=== PATIENT | male | born 1965 | race Caucasian/White ===

== ENCOUNTER 2019-04-24 12:06 | Day surgery (SDC) | payer OTHER ==
[~2019-04-24] VITALS: Ht 170.2 cm; Wt 69.5 kg
[2019-04-24 12:25] LABS: HEMATOCRIT 51.3 % (42.0-54.0); HEMOGLOBIN 18.2 g/dL (13.5-17.5); MCH 33.7 pg (26.0-34.0); MCHC 35.5 g/dL (31.0-37.0); MEAN PLATELET VOLUME 10.2 fL (7.4-10.4); RBC 5.4 10x6/uL (4.20-6.10); RDW 13.1 % (11.5-14.5); WBC 10.1 10x3/uL (4.8-10.8)
[2019-04-24 12:43] VITALS: BP 118/52; Ht 170.2 cm; Wt 69.5 kg
[2019-04-24 12:56] LABS: ALBUMIN 4.7 g/dL (3.4-5.0); ANION GAP 13.2 mmol/L (8-16); BILIRUBIN - TOTAL 0.57 mg/dL (0.2-1.3); CALCIUM 9.7 mg/dL (8.5-10.1); CARBON DIOXIDE 30.4 mmol/L (21.0-32.0); CREATININE - SERUM 1.2 mg/dL (0.6-1.3); POTASSIUM - SERUM 4.6 mmol/L (3.5-5.1); PROTEIN - SERUM 8.8 g/dL (6.4-8.2)
[2019-04-24 13:02] LABS: APTT 31.9 SECONDS (22.8-39.4); INR 0.95 (0.85-1.17); PROTIME 12.7 SECONDS (11.6-15.0)
--- NOTE | 2019-04-24 15:44 | NUR ---
1540 IV DC'D. CATHETER TIP INTACT. NO BLEEDING OR SWELLING AT SITE. BANDAID APPLIED.
--- NOTE | 2019-04-26 17:10 | OP ---
PATIENT NAME: DORINA QUEZADA MEDICAL RECORD: [id number] :65 LOCATION:D[facility] ADMISSION DATE: SURGEON: KELVIN RAPP DO DATE OF OPERATION: 04/24/2019 PROCEDURE: Colonoscopy with polypectomy and biopsies. INDICATIONS FOR PROCEDURE: Generalized abdominal tenderness, diarrhea, nausea, and vomiting. SCOPE: MST video pediatric colonoscope. MEDICATIONS: Propofol 250 mg IV per anesthesia. WITHDRAWAL TIME: 12 minutes. ESTIMATED BLOOD LOSS: Minimal. COMPLICATIONS: None. FINDINGS: Informed consent was given. The patient was made comfortable with the above medication. After reaching an adequate level of sedation by slow IV push, the patient was placed on his left side. A digital rectal examination was performed and was normal. The endoscope was then advanced under direct visualization through the rectum to the cecum, confirmed by the presence of the appendiceal orifice and ileocecal valve. The endoscope was slowly withdrawn. Mucosa was carefully examined. The prep quality was good. There was a benign appearing sessile polyp located in the cecum. It measured approximately 3 mm in diameter. It was removed using hot forceps. In the descending colon, there was a semi-pedunculated sessile polyp, which measured approximately 7-8 mm in diameter. It was removed using hot snare. The remaining defect was closed using an endoclip to prevent complications post discharge. During the procedure, stool was collected to send off for further studies and random biopsies were taken to rule out microscopic colitis. Retroflexion was performed in the rectum with visualization of grade I internal hemorrhoids without bleeding. The endoscope was withdrawn from the patient. The patient tolerated the procedure well and there were no complications. IMPRESSION: 1. Two polyps as described above, removed using a combination of hot forceps and hot snare. 2. Grade I internal hemorrhoids without bleeding. 3. Otherwise, normal colonoscopy. Stool studies will be performed and random biopsies were taken. PLAN AND RECOMMENDATIONS: 1. Discharge home when recovery parameters are met. 2. Follow up biopsy specimen results. 3. High fiber diet. 4. Continue current medications. 5. Supplement diet with 1 tablespoon of Metamucil daily. 6. Proceed with EGD as scheduled. 7. We will likely need a gastric emptying scan if EGD is within normal limits. 8. Recall colonoscopy in 5 years pending pathology results. OPERATIVE REPORT [id number] ODRINA QUEZADA TRANSINT:[id number] Voice Confirmation ID: [id number] DOCUMENT ID: [id number] KELVIN RAPP DO at 1710 CC: [id number] DICTATION DATE: 04/24/19 1510 HOSPICE ART THERAPIST: 04/25/19 0206 [facility] 04/24/19 [place] [id number] [place] [id number]
== END 2019-04-24 16:00 | disposition home or self-care (01) ==
LOC: D.OPS 12:06
PROVIDERS: Anesthesiology; ATTEND Internal Medicine Gastroenterology
DX: R10.817 Generalized abdominal tenderness (principal); R19.7 Diarrhea, unspecified; R11.2 Nausea with vomiting, unspecified; K74.60 Unspecified cirrhosis of liver; R13.10 Dysphagia, unspecified; D64.9 Anemia, unspecified

== ENCOUNTER 2019-05-15 05:45 | Day surgery (SDC) | payer OTHER ==
[~2019-05-15] VITALS: Ht 170.2 cm; Wt 69.1 kg
[2019-05-15 06:24] LABS: ANION GAP 11.6 mmol/L (8-16); BASOPHILS 0.4 % (0-2); CALCIUM 8.9 mg/dL (8.5-10.1); CARBON DIOXIDE 28.4 mmol/L (21.0-32.0); CREATININE - SERUM 1.1 mg/dL (0.6-1.3); EOSINOPHILS 3.4 % (0-7); HEMATOCRIT 47.3 % (42.0-54.0); HEMOGLOBIN 15.9 g/dL (13.5-17.5); IMMATURE GRANULOCYTES 0.2 % (0-5); LYMPHOCYTES 29.1 % (15-50); MCH 32.9 pg (26.0-34.0); MCHC 33.6 g/dL (31.0-37.0); MCV 97.9 fL (80.0-100.0); MEAN PLATELET VOLUME 10.5 fL (7.4-10.4); MONOCYTES 10.9 % (2-11); PLATELET COUNT 341 10x3/uL (130-400); RBC 4.83 10x6/uL (4.20-6.10); RDW 12.9 % (11.5-14.5); WBC 10.2 10x3/uL (4.8-10.8)
[2019-05-15 06:35] LABS: APTT 32.4 SECONDS (22.8-39.4); INR 0.96 (0.85-1.17); PROTIME 12.7 SECONDS (11.6-15.0)
[2019-05-15 06:40] VITALS: BP 123/66; Ht 170.2 cm; Wt 69.1 kg
[2019-05-15] MEDS ORDERED: ZOFRAN4 MG PO (06:44)
--- NOTE | 2019-05-15 09:15 | NUR ---
0840- VOISE IN TO REPORT FINDINGS AND RECOMMENDATIONS.
--- NOTE | 2019-05-15 09:30 | NUR ---
0920-D/C HOME VIA WHEELCHAIR WITH
[2019-05-15 09:48] LABS: ALBUMIN 4.1 g/dL (3.4-5.0); BILIRUBIN - TOTAL 0.31 mg/dL (0.2-1.3); PROTEIN - SERUM 7.5 g/dL (6.4-8.2)
--- NOTE | 2019-05-16 11:39 | OP ---
PATIENT NAME: DORINA QUEZADA MEDICAL RECORD: [id number] :65 [facility] DATE: SURGEON: KELVIN RAPP DO DATE OF OPERATION: 05/15/2019 PROCEDURE: EGD with biopsies and balloon dilation. INDICATIONS FOR PROCEDURE: Dysphagia, nausea and vomiting, anemia, generalized abdominal tenderness. SCOPE: Olympus video gastroscope. MEDICATIONS: Propofol 220 mg IV per anesthesia. ESTIMATED BLOOD LOSS: Minimal. COMPLICATIONS: None. FINDINGS: Informed consent was given. The patient was made comfortable with the above medication. After reaching an adequate level of sedation by slow IV push, the patient was placed on his left side. The endoscope was advanced under direct visualization through the mouth to the second portion of the duodenum with ease. The entire esophagus appeared normal down to the GE junction. At the GE junction, there was a mild nonobstructing Schatzki's ring present just proximal to some LA class A reflux-induced esophagitis and a hiatal hernia. The ring was dilated from 18-20 mm diameter in a stepwise fashion with a CRE dilating balloon. The maneuver was successful. The endoscope was advanced into the stomach and retroflexed to view the cardia, where a moderate sized hiatal hernia was present. There were no associated ulcers or other abnormalities. The hiatal hernia appeared to be a sliding type. Throughout the stomach, there were patchy areas of erythema and granularity consistent with mild chronic gastritis. Random cold forceps biopsies were taken from the antral area to submit for histopathology and to rule out the presence of H. pylori. In the duodenum, there was some erythema and granularity involving the duodenal bulb. The second portion of the duodenum appeared normal. Cold forceps biopsies were taken from both the bulb and the second portion to submit for histopathology in light of the patient's history of diarrhea. The endoscope was withdrawn from the patient. The patient tolerated the procedure well and there were no complications. IMPRESSIONS: 1. LA class A reflux-induced esophagitis. 2. Mild nonobstructive Schatzki's ring located at the GE junction, status post dilation to 20 mm. 3. Moderate size hiatal hernia. 4. Mild gastritis. 5. Mild duodenitis. PLAN AND RECOMMENDATIONS: 1. Discharge home when recovery parameters are met. 2. Follow up biopsy specimen results. 3. GERD diet and reflux precautions. 4. We will start omeprazole 40 mg daily. 5. Gastric emptying scan regarding the generalized abdominal tenderness as well as the nausea and vomiting. OPERATIVE REPORT [id number] DORINA QUEZADA 6. Consider surgical repair of hiatal hernia, based on symptoms. 7. Follow up in GI clinic in 4-6 weeks. TRANSINT:[id number] Voice Confirmation ID: [id number] DOCUMENT ID: [id number] KELVIN RAPP DO at 1139 CC: [id number] DICTATION DATE: 05/15/19819 [employer]: 05/15/19 09 [facility] 05/15/19 [place] [id number] [place] [address]
== END 2019-05-15 09:20 | disposition home or self-care (01) ==
LOC: D.OPS 05:45
PROVIDERS: ATTEND Internal Medicine Gastroenterology
DX: R13.10 Dysphagia, unspecified (principal); R11.2 Nausea with vomiting, unspecified; D64.9 Anemia, unspecified; R10.817 Generalized abdominal tenderness

== ENCOUNTER → 2019-05-22 07:20 | Outpatient (CLI) | payer OTHER ==
[2019-05-15 06:40] VITALS: BMI 23.8
[~2019-05-22 07:20] MED LIST: ZOFRAN4 MG PO
== END | disposition home or self-care (01) ==
LOC: D.NM 05-17 09:30
PROVIDERS: ATTEND Internal Medicine Gastroenterology
DX: R13.10 Dysphagia, unspecified (principal); R11.2 Nausea with vomiting, unspecified; Z86.19 Personal history of other infectious and parasitic diseases; D64.9 Anemia, unspecified; R10.827 Generalized rebound abdominal tenderness